=== PATIENT | female | born 1985 | race Caucasian/White ===

== ENCOUNTER 2020-06-15 22:18 | Emergency (ER) | payer OTHER ==
[2020-06-16] MEDS ORDERED: NORCO 5-325 TA1 EACH PO (00:35)
[2020-06-16] MEDS ORDERED: IBUPROFEN800 MG PO (00:35)
== END 2020-06-16 00:45 | disposition home or self-care (01) ==
LOC: FER 22:18
DX: S67.193A Crushing injury of left middle finger, initial encounter (principal); S62.643A Nondisplaced fracture of proximal phalanx of left middle finger, initial encounter for closed fracture; F17.290 Nicotine dependence, other tobacco product, uncomplicated; W23.0XXA Caught, crushed, jammed, or pinched between moving objects, initial encounter; Y92.009 Unspecified place in unspecified non-institutional (private) residence as the place of occurrence of the external cause
CPT/HCPCS: 73130; 99283

== ENCOUNTER 2021-03-25 21:42 | Emergency (ER) | payer OTHER ==
[~2021-03-25 21:42] MED LIST: IBUPROFEN800 MG PO; NORCO 5-325 TA1 EACH PO
[2021-03-25 23:03] LABS: BASOPHIL 0.7 % (0-2); EOSINOPHIL 1.7 % (0-5); HCT 39.1 % (37.0-47.0); HGB 12.7 g/dl (12.5-16.0); LYMPHOCYTE 30.8 % (15-48); MCH 28.2 pg (25.0-31.0); MCHC 32.5 g/dL (32.0-36.0); MCV 86.7 fL (78.0-100.0); MONOCYTE 5.8 % (0-12); NEUTROPHIL 60.7 % (41-80); NRBC 0; PLT 279 K/uL (150-400); RBC 4.51 M/uL (4.20-5.40); RDW 12.8 % (11.5-14.0)
[2021-03-25 23:17] LABS: BUN/CREAT RATIO (CALC) 17.6 RATIO; CREATININE 0.74 mg/dL (0.51-0.95); POTASSIUM 4.2 mmol/L (3.5-5.1)
[2021-03-25 23:32] LABS: BILIRUBIN NEGATIVE (NEGATIVE); BLOOD TRACE-INTACT Ery/uL (NEGATIVE); CLARITY CLEAR (CLEAR); COLOR YELLOW (YELLOW); GLUCOSE (U) NORMAL (NORMAL); LEUKOCYTES NEGATIVE Leu/uL (NEGATIVE); NITRITE NEGATIVE (NEGATIVE); PROTEIN NEGATIVE (NEGATIVE); SPECIFIC GRAVITY 1.025 (1.001-1.030); UROBILINOGEN 0.2 mg/dL (0.2-1.0)
[2021-03-25] MEDS ORDERED: MEDROL 4MG DOSEP4 MG PO (23:36)
[2021-03-25] MEDS ORDERED: NAPROXEN500 MG PO (23:36)
[2021-03-25] MEDS ORDERED: BACLOFEN 10MG T10 MG PO (23:36)
[2021-03-25 23:41] LABS: BACTERIA TRACE; SQUAMOUS EPITHELIAL CELLS RARE
== END 2021-03-25 23:55 | disposition home or self-care (01) ==
LOC: FER 21:42
PROVIDERS: Nurse Practitioner Family
DX: M54.31 Sciatica, right side (principal); M54.17 Radiculopathy, lumbosacral region
CPT/HCPCS: 36415; 72131; 80048; 81001; 85025; 96372; J1100; J1885

== ENCOUNTER 2021-11-24 16:36 | Emergency (ER) | payer OTHER ==
[~2021-11-24 16:36] MED LIST changes: +BACLOFEN 10MG T10 MG PO; +MEDROL 4MG DOSEP4 MG PO; +NAPROXEN500 MG PO
[2021-11-24 17:45] LABS: BILIRUBIN NEGATIVE (NEGATIVE); BLOOD TRACE-INTACT Ery/uL (NEGATIVE); CLARITY CLEAR (CLEAR); COLOR YELLOW (YELLOW); GLUCOSE (U) NORMAL (NORMAL); LEUKOCYTES NEGATIVE Leu/uL (NEGATIVE); NITRITE NEGATIVE (NEGATIVE); PROTEIN NEGATIVE (NEGATIVE); SPECIFIC GRAVITY 1.015 (1.001-1.030); UROBILINOGEN 0.2 mg/dL (0.2-1.0); pH 8.5 (5.0-9.0)
[2021-11-24 17:45] LABS: BASOPHIL 0.4 % (0-2); HCT 43.1 % (37.0-47.0); HGB 14.2 g/dl (12.5-16.0); MCH 27.9 pg (25.0-31.0); MCHC 32.9 g/dL (32.0-36.0); MCV 84.7 fL (78.0-100.0); MONOCYTE 4.5 % (0-12); MPV 9.8 fL (6.0-9.5); NEUTROPHIL 70.8 % (41-80); NRBC 0; PLT 324 K/uL (150-400); RBC 5.09 M/uL (4.20-5.40); RDW 13.1 % (11.5-14.0)
[2021-11-24 17:51] LABS: BACTERIA 1+; URINARY WBC RARE
[2021-11-24 18:08] LABS: LACTIC ACID 0.8 mmol/L (0.4-1.9)
[2021-11-24 18:10] LABS: ALBUMIN 3.9 g/dL (3.4-5.0); ALKALINE PHOSHATASE 86 U/L (46-116); ALT 23 U/L (14-59); AST 11 U/L (15-37); BILIRUBIN - TOTAL 0.5 mg/dL (0.2-1.0); BUN 13 mg/dL (7-18); BUN/CREAT RATIO (CALC) 20.3 RATIO; CHLORIDE 101 mmol/L (98-107); CO2 (BICARBONATE) 26 mmol/L (21-32); CREATININE 0.64 mg/dL (0.51-0.95); GLOBULIN (CALCULATION) 3.5 g/dL; GLUCOSE 129 mg/dL (74-106); LIPASE 71 U/L (73-393); POTASSIUM 4.4 mmol/L (3.5-5.1); TOTAL PROTEIN 7.4 g/dL (6.4-8.2)
[2021-11-24] MEDS ORDERED: CARAFATE1 GM PO (19:53)
== END 2021-11-24 20:11 | disposition home or self-care (01) ==
LOC: FER 16:36
PROVIDERS: Physician Assistant
DX: K21.9 Gastro-esophageal reflux disease without esophagitis (principal); I48.91 Unspecified atrial fibrillation; Z79.82 Long term (current) use of aspirin; Z87.891 Personal history of nicotine dependence; Z28.311 Partially vaccinated for COVID-19
CPT/HCPCS: 36415; 80053; 81001; 83605; 83690; 84484; 85025; 93005; J7030; Q9967